=== PATIENT | female | born 1960 | race Caucasian/White ===

== ENCOUNTER → 2016-05-19 | Outpatient (CLI) | payer OTHER ==
[2016-05-19 09:55] LABS: Anion Gap 10 mmol/L; Blood Urea Nitrogen 11 mg/dL (7-17); Calcium 10.2 mg/dL (8.4-10.2); Carbon Dioxide 27 mmol/L (22-30); Chloride 104 mmol/L (98-107); Glucose 119 mg/dL (74-99); Non-African American GFR(MDRD) >60 (>60 ml/min/1.73 sqM); Potassium 4.3 mmol/L (3.5-5.1); Sodium 141 mmol/L (137-145)
[2016-05-19 10:12] LABS: CH 36.4; CHCM 32.4; HCT 39.4 % (34.0-46.0); HDW 1.85; HGB 12.7 gm/dL (11.4-16.0); MCH 36.4 pg (25.0-35.0); MCHC 32.3 g/dL (31.0-37.0); Macrocytosis Marked; Mean Platelet Volume 7.1; RDW 12.8 % (11.5-15.5); WBC 5.6 k/uL (3.8-10.6)
[2016-05-19 10:17] LABS: MCV 112.7 fL (80.0-100.0)
[2016-05-20 15:09] LABS: Hepatits C Virus RNA, Quant <12 IU/mL (<12); LOG HCV IU/mL <1.08 (<1.08)
== END | disposition home or self-care (01) ==
LOC: LABWHC1 08:50
DX: B18.2 Chronic viral hepatitis C (principal)
CPT/HCPCS: 36415; 80048; 82105; 85027; 87522

== ENCOUNTER → 2022-03-11 | Outpatient (CLI) | payer OTHER ==
[2022-03-11 13:22] VITALS: BP 171/94; PULSE 95; RESP 16; TEMP 98.5
--- NOTE | 2022-03-11 14:11 | P.HPOB ---
History of Present Illness H&P Date: 03/11/22 Chief Complaint: The patient is here for her routine gynecologic exam and ma mmogram. This is a 61-year-old 013 with an LMP of 2002. The patient is here to establish with this office. It has been about 3 years since her last pelvic exam. She is without gynecologic complaints and denies any postmenopausal bleeding. Review of Systems The patient's weight has been stable over the last year. She denies respiratory, cardiac, or G.I. problems. Past Medical History Past Medical History: COPD, Hypertension Additional Past Medical History / Comment(s): MILD STROKES, HEART DISEASE. Left shoulder problems. 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 History of Any Multi-Drug Resistant Organisms: None Reported Past Surgical History: Tubal Ligation Additional Past Surgical History / Comment(s): LIVER BIOPSY. Colonoscopy 2001. Past Anesthesia/Blood Transfusion Reactions: No Reported Reaction Past Psychological History: Anxiety, Depression (No current depression.) Smoking Status: Current every day smoker (Three quarters of a pack of cigarettes per day.) Past Alcohol Use History: Daily (2 or 3 beers daily.) Past Drug Use History: Marijuana (She does use marijuana infrequently and has used it for pain.) Additional History: She is . She has been living with her male friend for many years and has not been sexually active for many years. She is disabled. - Past Family History Mother Family Medical History: Cancer Additional Family Medical History / Comment(s): Breast cancer. Sister(s) Family Medical History: Cancer Additional Family Medical History / Comment(s): Throat cancer. Another sister had liver cancer. Brother(s) Family Medical History: Seizure Disorder Medications and Allergies Home Medications Medication Instructions Recorded Confirmed Type Dandelion Root 525 mg PO DAILY 03/11/22 03/11/22 History HYDROcodone/APAP 10-325MG [[place] 1 tab PO DAILY PRN 03/11/22 03/11/22 History 10-325] Turmeric Root Extract [Turmeric] 500 mg PO DAILY 03/11/22 03/11/22 History Allergies Allergy/AdvReac Type Severity Reaction Status Date / Time No Known Allergies Allergy Unverified 03/11/22 13:14 Exam Vital Signs Temp Pulse Resp BP Pulse Ox 03/11/22 13:16 98.5 F 95 16 171/94 97 Intake and Output 03/10/22 03/11/22 03/11/22 22:59 06:59 14:59 Other: Weight 69.4 kg Height 5 feet 6 inches, weight 153 pounds, BMI 24.7. This is a well-developed well-nourished white female who is alert and oriented times 3 in no acute distress. HEENT: Within normal limits. NECK: Supple without mass or thyromegaly. CHEST AND LUNGS: Mild prolonged expiration breath sounds bilaterally. There is no wheezing, rhonchi, or rales. HEART: Regular rate and rhythm. BREASTS: Are without mass or discharge. AXILLARY EXAM: Negative for adenopathy. BACK: Negative for CVA tenderness. ABDOMEN: Soft, nontender, without palpable masses. PELVIC EXAM: Normal external genitalia with mild atrophy. Cervix and vagina appear normal with mild atrophy. There is no unusual discharge. There is no evidence of prolapse. The uterus is midposition, nongravid size and nontender. There are no palpable adnexal masses or tenderness. RECTAL EXAM: Rectovaginal exam is negative for mass or tenderness and is negative for occult blood. EXTREMITIES: Nontender. IMPRESSION: 1. 61-year-old menopausal female with normal gynecologic exam. 2. Elevated blood pressure with history of hypertension, not on blood pressure medicine. PLAN: 1. Pap smear cotest was performed. 2. Self breast awareness was discussed with the patient. We have also discussed symptoms associated with inflammatory breast cancer. 3. Screening mammogram will be done today. 4. Osteoporosis prevention was discussed. I have stressed the importance of adequate calcium, vitamin D and regular exercise. Recommended amounts of c alcium and vitamin D were also discussed. She believes she had a bone density test done several years ago and she is uncertain with the results were. I recommended bone density testing and an order slip was given to the patient for this. 5. We have discussed her elevated blood pressure. I recommended that she check her own blood pressure on a regular basis and follow up with her PCP for blood pressure elevations. 6. She has completed her Covid vaccination series and has received 1 booster. 7. Her PCP has recommended that she do a colonoscopy and she will arrange this through her PCP. 8. She was advised to return in one year for her annual well woman exam.
--- NOTE | 2022-03-12 09:12 | MM ---
Reason for Exam: Screening (asymptomatic). Last mammogram was performed 4 year(s) and 6 month(s) ago. Patient History: Menarche at age 13. First Full-Term at age 15. Postmenopausal. Hormonal Contraceptives, starting at age 14 for 1 year. Mother had breast cancer, age 50. Risk Values: Nena 5 year model risk: 2.7%. NCI Lifetime model risk: 11.1%. Prior Study Comparison: 08/18/2007 Bilateral Diagnostic Mammogram, [facility]. Tissue Density: The breast tissue is heterogeneously dense. This may lower the sensitivity of mammography. Findings: Analyzed By CAD. Pattern appears symmetrical. There is a small focal asymmetry which may be a summation density in the upper right mediolateral oblique view. Additional workup is recommended. Overall Assessment: Incomplete: need additional imaging evaluation, BI-RAD 0 Management: Diagnostic Mammogram of the right breast. A negative mammogram report should not preclude additional follow up of suspicious palpable abnormalities. Patient should continue monthly self breast exam. A clinical breast exam by your physician is recommended on an annual basis and results should be correlated with mammographic findings. Electronically signed and approved by: Stone Le D.O. Radiologis
== END ==
LOC: WWCWWP 13:06
PROVIDERS: ATTEND Obstetrics & Gynecology
DX: Z12.31 Encounter for screening mammogram for malignant neoplasm of breast (principal); J44.9 Chronic obstructive pulmonary disease, unspecified; I10 Essential (primary) hypertension; F17.200 Nicotine dependence, unspecified, uncomplicated; Z01.411 Encounter for gynecological examination (general) (routine) with abnormal findings
CPT/HCPCS: 77067

== ENCOUNTER → 2022-03-14 | Outpatient (CLI) | payer OTHER ==
--- NOTE | 2022-03-14 14:34 | MM ---
Reason for Exam: Additional evaluation requested from abnormal screening. Last screening mammogram was performed less than 1 month ago. Patient History: Menarche at age 13. First Full-Term at age 15. Postmenopausal. Hormonal Contraceptives, starting at age 14 for 1 year. Mother had breast cancer, age 50. Risk Values: Nena 5 year model risk: 2.7%. NCI Lifetime model risk: 11.1%. Prior Study Comparison: 08/18/2007 Bilateral Diagnostic Mammogram, [facility]. 05/28/2015 Bilateral MG screening mammo w CAD - 2, [facility]. 09/16/2017 Bilateral MG screening mammo w CAD - 2, [facility]. 03/11/2022 Bilateral MG screening mammo w CAD, [facility]. Tissue Density: Right: The breast tissue is heterogeneously dense. This may lower the sensitivity of mammography. Findings: Analyzed By CAD. Focal asymmetry within the upper right breast on the MLO view posterior depth does not persist with compression. Overall Assessment: Negative, BI-RAD 1 Management: Screening Mammogram of both breasts in 1 year. A clinical breast exam by your physician is recommended on an annual basis and results should be correlated with mammographic findings. This exam should not preclude additional follow-up of suspicious palpable abnormalities. Results were given to the patient verbally at the time of exam. Electronically signed and approved by: New Burkett D.O.
== END | disposition home or self-care (01) ==
LOC: RADMAMWWP 14:13
PROVIDERS: ATTEND Obstetrics & Gynecology
DX: R92.8 Other abnormal and inconclusive findings on diagnostic imaging of breast (principal); Z78.0 Asymptomatic menopausal state; Z80.3 Family history of malignant neoplasm of breast
CPT/HCPCS: 77065; G0279; 77061

== ENCOUNTER → 2022-06-20 | Outpatient (CLI) | payer OTHER ==
--- NOTE | 2022-06-20 13:53 | XR ---
EXAMINATION TYPE: XR chest 2V DATE OF EXAM: 06/20/2022 COMPARISON: None INDICATION: Preop TECHNIQUE: Frontal and lateral views of the chest are obtained. FINDINGS: The heart size is normal. The pulmonary vasculature is normal. The lungs are clear. IMPRESSION: 1. No acute pulmonary process.
== END | disposition home or self-care (01) ==
LOC: RADXRMAIN 11:13
PROVIDERS: ATTEND Family Medicine
DX: Z01.818 Encounter for other preprocedural examination (principal); R91.8 Other nonspecific abnormal finding of lung field
CPT/HCPCS: 71046

== ENCOUNTER → 2022-06-20 | Outpatient (CLI) | payer OTHER ==
[2022-06-20 20:39] LABS: HCT 40.6 % (37.2-46.3); HGB 13.5 g/dL (12.0-15.0); MCH 35.7 pg (27.0-32.0); MCHC 33.3 g/dL (32.0-37.0); MCV 107.4 fL (80.0-97.0); Mean Platelet Volume 9.8 fL (9.5-12.2); NRBC Per 100 WBC 0 /100 WBCS (0.0-0.0); Platelet Count 180 X 10*3/uL (140-440); RBC 3.78 X 10*6/uL (4.10-5.20); RDW 12.9 % (11.5-14.5); WBC 7.08 X 10*3/uL (4.50-10.00)
[2022-06-20 22:28] LABS: Basophils # (A) 0.05 X 10*3/uL (0.00-0.10); Basophils % (A) 0.7 %; Eosinophils # (A) 0.14 X 10*3/uL (0.04-0.35); Immature Grans, Automated 0.3 %; Lymphocytes # (A) 1.81 X 10*3/uL (0.90-5.00); Lymphocytes % (A) 25.6 %; Monocytes # (A) 0.72 X 10*3/uL (0.20-1.00); Monocytes % (A) 10.2 %; Neutrophils # (A) 4.34 X 10*3/uL (1.80-7.70); Neutrophils % (A) 61.2 %
== END | disposition home or self-care (01) ==
LOC: LABPAT 11:11
PROVIDERS: ATTEND Obstetrics & Gynecology
DX: Z01.812 Encounter for preprocedural laboratory examination (principal); D06.9 Carcinoma in situ of cervix, unspecified
CPT/HCPCS: 36415; 85025

== ENCOUNTER → 2022-07-01 | Outpatient (CLI) | payer OTHER ==
[2022-07-01 11:28] LABS: INR 0.9 (<1.2); Partial Thromboplastin Time 24.3 sec (22.0-30.0); Prothrombin Time 9.9 sec (9.0-12.0)
[2022-07-01 15:00] LABS: Basophils # (A) 0.05 X 10*3/uL (0.00-0.10); Basophils % (A) 0.9 %; Eosinophils # (A) 0.12 X 10*3/uL (0.04-0.35); Eosinophils % (A) 2.2 %; HCT 38.7 % (37.2-46.3); HGB 13.3 g/dL (12.0-15.0); Immature Grans, Automated 0.2 %; Lymphocytes # (A) 1.94 X 10*3/uL (0.90-5.00); Lymphocytes % (A) 35.2 %; MCH 35.4 pg (27.0-32.0); MCHC 34.4 g/dL (32.0-37.0); MCV 102.9 fL (80.0-97.0); Mean Platelet Volume 9.5 fL (9.5-12.2); Monocytes # (A) 0.62 X 10*3/uL (0.20-1.00); Monocytes % (A) 11.3 %; NRBC Per 100 WBC 0 /100 WBCS (0.0-0.0); Neutrophils # (A) 2.77 X 10*3/uL (1.80-7.70); Neutrophils % (A) 50.2 %; Platelet Count 175 X 10*3/uL (140-440); RBC 3.76 X 10*6/uL (4.10-5.20); RDW 12.5 % (11.5-14.5); WBC 5.51 X 10*3/uL (4.50-10.00)
[2022-07-01 15:36] LABS: ALT 24 U/L (8-44); AST 33 U/L (13-35); African American GFR (CKD) 111.3 (60.0-200.0); Albumin 4.6 g/dL (3.8-4.9); Alkaline Phosphatase 87 U/L (41-126); BUN/Creat Ratio 16.48 Ratio (12.00-20.00); Blood Urea Nitrogen 10.2 mg/dL (9.0-27.0); Calcium 9.6 mg/dL (8.7-10.3); Carbon Dioxide 25.1 mmol/L (20.0-27.5); Chloride 99 mmol/L (96-109); Chol/HDL Ratio 1.52 Ratio; Globulin 2.7 g/dL (1.6-3.3); Glucose 90 mg/dL (70-110); Potassium 4.5 mmol/L (3.5-5.5); Sodium 136 mmol/L (135-145); Total Protein 7.4 g/dL (6.2-8.2); VLDL Calculation 5.98 mg/dL (5.00-40.00)
== END | disposition home or self-care (01) ==
LOC: LABWHC1 10:01
PROVIDERS: ATTEND Family Medicine
DX: Z01.812 Encounter for preprocedural laboratory examination (principal)
CPT/HCPCS: 36415; 80053; 80061; 83036; 84443; 85025; 85610; 85730